=== PATIENT | male | born 2000 | race African-American/Black ===

== ENCOUNTER 2020-02-29 22:05 | Emergency (ER) | payer OTHER ==
[2020-03-01] MEDS ORDERED: diphenhydrAMINE 25MG CAP As Ordered ONE (00:32)
[2020-03-01] MEDS ORDERED: KETOROLAC 30 MG/ML 1ML VIAL As Ordered ONE (00:32)
[2020-03-01] MEDS ORDERED: ACETAMINOPHEN 500 MG TAB As Ordered ONE (00:33)
== END 2020-03-01 00:35 | disposition home or self-care (01) ==
LOC: M ED 22:05
DX: R51 Headache (principal); S09.90XA Unspecified injury of head, initial encounter; W22.8XXA Striking against or struck by other objects, initial encounter; Y92.89 Other specified places as the place of occurrence of the external cause; Y99.0 Civilian activity done for income or pay
CPT/HCPCS: 70450; 96372; 99282; J1885

== ENCOUNTER → 2020-03-07 | Emergency (ER) | payer OTHER ==
[~2020-03-07] MED LIST: KETOROLAC 30 MG/ML 1ML VIAL ONE; METOCLOPRAMIDE INJ 10MG/2ML VIAL (J2765 PER 1) ONE; diphenhydrAMINE 50MG/ML VIAL (J1200) ONE
== END | disposition home or self-care (01) ==
LOC: M ED 20:50
DX: S06.0X0A Concussion without loss of consciousness, initial encounter (principal); W28.XXXA Contact with powered lawn mower, initial encounter; Y92.137 Garden or yard on military base as the place of occurrence of the external cause; Y93.H2 Activity, gardening and landscaping; Y99.1 Military activity
CPT/HCPCS: 96374; 96375; 99283; J1200; J1885; J2765

== ENCOUNTER 2020-08-11 22:00 | Emergency (ER) | payer OTHER ==
[~2020-08-11] VITALS: Ht 177.8 cm; Wt 90.9 kg
[2020-08-11] MEDS ORDERED: ACETAMINOPHEN 500 MG TAB PO ONE (22:15)
--- NOTE | 2020-08-11 22:36 | REPVR ---
PROCEDURE INFORMATION: Exam: XR Chest, 1 View Exam date and time: 08/11/2020 10:02 PM Age: 20 years old Clinical indication: Injury or trauma; Fall; Blunt trauma (contusions or hematomas) TECHNIQUE: Imaging protocol: XR of the chest Views: 1 view. COMPARISON: No relevant prior studies available. FINDINGS: Lungs: Unremarkable. No consolidation. No pulmonary edema. Pleural space: Unremarkable. No pleural effusion or pneumothorax is identified. Heart/Mediastinum: Unremarkable. No cardiomegaly. Bones/joints: Unremarkable. IMPRESSION: No acute findings. Electronically signed by: Casey Rowland On 08/11/2020 22:36:19 PM
--- NOTE | 2020-08-11 22:48 | REPVR ---
PROCEDURE INFORMATION: Exam: CT Head Without Contrast Exam date and time: 08/11/2020 10:17 PM Age: 20 years old Clinical indication: Injury or trauma; Fall; Blunt trauma (contusions or hematomas) TECHNIQUE: Imaging protocol: Computed tomography of the head without contrast. Radiation optimization: All CT scans at this facility use at least one of these dose optimization techniques: automated exposure control; mA and/or kV adjustment per patient size (includes targeted exams where dose is matched to clinical indication); or iterative reconstruction. COMPARISON: CT Head without contrast 02/29/2020 10:29 PM (The report from this study was not available for review at the time of this interpretation.) FINDINGS: Brain: There is no CT evidence for an acute large vessel territorial infarct. No acute intracranial hemorrhage is seen. No mass, mass effect, midline shift, or herniation is noted. The cortical gyration pattern, basal ganglia, thalami, brainstem, and cerebellum are normal in appearance. Cerebral ventricles: Normal. No hydrocephalus. Bones/joints: The skull is intact. No suspicious osteolytic or osteoblastic lesion. Paranasal sinuses: The imaged portions of the sinuses are well-aerated. No air-fluid levels are noted in the sinuses. Mastoid air cells: Clear. Auditory system: The middle ear spaces are clear. Orbital cavity: The globes and orbits are intact and normal in appearance. Soft tissues: Unremarkable. No soft tissue fluid collection. IMPRESSION: No acute intracranial abnormality. Electronically signed by: Casey Rowland On 08/11/2020 22:48:37 PM
--- NOTE | 2020-08-11 22:48 | REPVR ---
PROCEDURE INFORMATION: Exam: CT Cervical Spine Without Contrast Exam date and time: 08/11/2020 10:17 PM Age: 20 years old Clinical indication: Injury or trauma; Fall; Blunt trauma TECHNIQUE: Imaging protocol: Computed tomography images of the cervical spine without contrast. Radiation optimization: All CT scans at this facility use at least one of these dose optimization techniques: automated exposure control; mA and/or kV adjustment per patient size (includes targeted exams where dose is matched to clinical indication); or iterative reconstruction. COMPARISON: No relevant prior studies available. FINDINGS: Bones/joints: The alignment of the cervical spine is within normal limits. There is no fracture or subluxation. The vertebral body heights are preserved. There is no cervical rib. No suspicious osteolytic or osteoblastic lesion is noted. Discs/Spinal canal/Neural foramina: The disc heights are preserved. No disc herniation, spinal canal stenosis, or neural foraminal stenosis is identified at any of the imaged levels. The facet joints are unremarkable. Prevertebral Space: No prevertebral soft tissue swelling is noted. Lungs: The imaged lung apices are clear. Soft tissues: Unremarkable. No soft tissue fluid collection is noted. IMPRESSION: No fracture or subluxation in the cervical spine. Electronically signed by: Casey Rowland On 08/11/2020 22:48:32 PM
[2020-08-11 23:00] VITALS: BP 142/79
== END 2020-08-11 23:30 | disposition home or self-care (01) ==
LOC: M ED 22:00
DX: S09.90XA Unspecified injury of head, initial encounter (principal); W19.XXXA Unspecified fall, initial encounter; Y92.9 Unspecified place or not applicable; Y93.23 Activity, snow (alpine) (downhill) skiing, snowboarding, sledding, tobogganing and snow tubing; Y99.9 Unspecified external cause status; Z91.018 Allergy to other foods